=== PATIENT | male | born 1995 | race Caucasian/White ===

== ENCOUNTER 2016-12-12 19:51 | Emergency (ER) | payer OTHER ==
[~2016-12-12] VITALS: Ht 185.4 cm; Wt 88.8 kg
[2016-12-12] MEDS ORDERED: NAPROSYN500 MG PO (21:48)
[2016-12-12 22:15] VITALS: BP 160/77
== END 2016-12-12 22:16 | disposition home or self-care (01) ==
LOC: EME 19:51 → RME 19:51
DX: S83.412A Sprain of medial collateral ligament of left knee, initial encounter (principal); V03.90XA Pedestrian on foot injured in collision with car, pick-up truck or van, unspecified whether traffic or nontraffic accident, initial encounter; Z91.018 Allergy to other foods
CPT/HCPCS: 73564; 99281; 99284